=== PATIENT | male | born 1945 | race Caucasian/White ===

== ENCOUNTER 2017-09-03 16:42 | Observation (INO) | payer MEDICARE ==
--- NOTE | 2017-09-03 17:24 | ED PDOC ---
HPI: Chest Pain Time Seen by Provider: 09/03/17 17:10 Chief Complaint (Nursing): Chest Pain Chief Complaint (Provider): Chest pain History Per: Patient History/Exam Limitations: no limitations Onset/Duration Of Symptoms: Hrs (x1 [employer]) Current Symptoms Are (Timing): Still Present Quality: Pressure Associated Symptoms: Nausea Additional Complaint(s): Cy Witt is a 72 year old female, with a past medical history of CAD s/ p stent and HTN, who presents to the emergency department complaining of substernal chest pressure onset x1 hr [employer]. Patient states pain is non-radiating and associated with shortness of breath and nausea. Patient reports similar symptoms x2 years ago prior to stent placement. No further medical complaints. PMD: Rusty Goddard Past Medical History Reviewed: Historical Data, Nursing Documentation, Vital Signs Vital Signs: Last Vital Signs Temp 98.2 F 09/03/17 16:50 Pulse 54 L 09/03/17 16:50 Resp 16 09/03/17 16:50 BP 132/75 09/03/17 16:50 Pulse Ox 97 09/03/17 17:29 - Medical History PMH: CAD, HTN - Surgical History Surgical History: Coronary Stent - Family History Family History: States: Unknown Family Hx - Social History Alcohol: None Drugs: Denies - Allergies Allergies/Adverse Reactions: Allergies Allergy/AdvReac Type Severity Reaction Status Date / Time No Known Allergies Allergy Verified 09/03/17 16:50 Review of Systems ROS Statement: Except As Marked, All Systems Reviewed And Found Negative Cardiovascular: Positive for: Chest Pain (substernal chest pressure) Respiratory: Positive for: Shortness of Breath Gastrointestinal: Positive for: Nausea Physical Exam - Reviewed Nursing Documentation Reviewed: Yes Vital Signs Reviewed: Yes - Physical Exam Appears: Positive for: Non-toxic, No Acute Distress Head Exam: Positive for: ATRAUMATIC, NORMAL INSPECTION, NORMOCEPHALIC Skin: Positive for: Normal Color, Warm, Dry Eye Exam: Positive for: Normal appearance, EOMI, PERRL Neck: Positive for: Painless ROM, Supple Cardiovascular/Chest: Positive for: Regular Rate, Rhythm. Negative for: Murmur Respiratory: Positive for: Normal Breath Sounds. Negative for: Respiratory Distress Gastrointestinal/Abdominal: Positive for: Normal Exam, Soft. Negative for: Tenderness Back: Positive for: Normal Inspection Extremity: Positive for: Normal ROM (upper and lower extremities). Negative for : Deformity, Swelling Neurologic/Psych: Positive for: Alert, Oriented. Negative for: Motor/Sensory Deficits - Laboratory Results Result Diagrams: 09/03/17 17:25 09/03/17 17:25 - ECG O2 Sat by Pulse Oximetry: 97 (RA) Pulse Ox Interpretation: Normal Medical Decision Making Medical Decision Making: Time: 17:10 Initial Plan: --CMP --Troponin I --CBC w/ differential --Chest two views (PA/LAT) [RAD] --Aspirin 325mg PO --Reevaluation Scribe Attestation: Documented by Wagner Jiménez, acting as a scribe for Anupam Reyna MD Provider Scribe Attestation: All medical record entries made by the Scribe were at my direction and personally dictated by me. I have reviewed the chart and agree that the record accurately reflects my personal performance of the history, physical exam, medical decision making, and the department course for this patient. I have also personally directed, reviewed, and agree with the discharge instructions and disposition. Disposition - Clinical Impression Clinical Impression: Chest pain - Patient ED Disposition Is Patient to be Admitted: Yes - Disposition Disposition Time: 18:41 Condition: FAIR Forms: ClassBug (Uzbek) - Pt Status Changed To: Hospital Disposition Of: Observation - POA Present On Arrival: None
[2017-09-03 17:45] LABS: BASO # 0.1 K/uL (0.0-0.2); BASO % 0.9 % (0.0-2.0); EOS # 0.3 K/uL (0.0-0.7); EOS % 4.1 % (0.0-4.0); HEMOGLOBIN 15.8 g/dL (12.0-18.0); LYMPH # 2.1 K/uL (1.0-4.3); MEAN CELL VOLUME 89.6 fl (80.0-94.0); MEAN CORPUSCULAR HEMOGLOBIN 30.5 pg (27.0-31.0); MEAN CORPUSCULAR HGB CONC 34.1 g/dL (33.0-37.0); MEAN PLATELET VOLUME 9.3 fl (7.2-11.7); MONO # 0.6 K/uL (0.0-0.8); MONO % 9.1 % (0.0-10.0); NEUT # 3.5 K/uL (1.8-7.0); NEUT % 53.9 % (50.0-75.0); NRBC % 0.2 % (0.0-0.0); RBC 5.18 Mil/uL (4.40-5.90); RED CELL DISTRIBUTION WIDTH 14.5 % (11.5-14.5); WHITE BLOOD COUNT 6.4 K/uL (4.8-10.8)
[2017-09-03 17:49] LABS: ALB/GLOB RATIO 1.2 (1.0-2.1); ALBUMIN 4.2 g/dL (3.5-5.0); ALT/SGPT 30 U/L (21-72); AST/SGOT 29 U/L (17-59); BLOOD UREA NITROGEN 16 mg/dl (9-20); CALCIUM 9.3 mg/dL (8.4-10.2); GFR AFRICAN-AMERICAN > 60; GFR NON-AFRICAN AMERICAN > 60
--- NOTE | 2017-09-03 18:21 | RAD ---
HISTORY: COMPARISON: No prior. TECHNIQUE: Chest PA and lateral FINDINGS: LINES AND TUBES: None. LUNG AND PLEURA: The lungs are well inflated and clear. No pleural effusion or pneumothorax. HEART AND MEDIASTINUM: The heart is not enlarged. The hilar and mediastinal contours are within normal limits. SKELETAL STRUCTURES: The bony structures are within normal limits for the patient's age. VISUALIZED UPPER ABDOMEN: Normal. OTHER FINDINGS: There is chronic elevation of the right hemidiaphragm. IMPRESSION: No active pulmonary disease.
[2017-09-04 05:14] VITALS: TEMP 97.9
[2017-09-04 05:37] LABS: HEMOGLOBIN 15.7 g/dL (12.0-18.0); MEAN CELL VOLUME 89.7 fl (80.0-94.0); MEAN CORPUSCULAR HEMOGLOBIN 30.2 pg (27.0-31.0); MEAN CORPUSCULAR HGB CONC 33.6 g/dL (33.0-37.0); RBC 5.2 Mil/uL (4.40-5.90); RED CELL DISTRIBUTION WIDTH 14.4 % (11.5-14.5); WHITE BLOOD COUNT 7.1 K/uL (4.8-10.8)
[2017-09-04 05:55] LABS: T4 7.84 ug/dl (5.5-11.0)
[2017-09-04] MEDS ORDERED: Pneumococcal 23-Valent Vaccine IM ONE (06:00)
--- NOTE | 2017-09-04 08:23 | CP.PCM.HP ---
History of Present Illness - History of Present Illness History of Present Illness: 72 YR OLD MALE ADMITTED WITH CHEST DISCOMFORT X 1 DAY HX OF SIMILAR EPISODE 2YRS AGO REQUIRING A CARDIAC STENT FEELS BETTER THIS AM PMX-ASHD AND HTN FAMILY HX --UNREMARKABLE Present on Admission - Present on Admission Any Indicators Present on Admission: Yes Past Patient History - Past Medical History & Family History Past Medical History?: Yes - Past Social History Smoking Status: Never Smoked - CARDIAC Hx Cardiac Disorders: Yes Hx Hypertension: Yes - PULMONARY Hx Respiratory Disorders: No - NEUROLOGICAL Hx Neurological Disorder: No - HEENT Hx HEENT Problems: No - RENAL Hx Chronic Kidney Disease: No - ENDOCRINE/METABOLIC Hx Endocrine Disorders: No - HEMATOLOGICAL/ONCOLOGICAL Hx Blood Disorders: No - INTEGUMENTARY Hx Dermatological Problems: No - MUSCULOSKELETAL/RHEUMATOLOGICAL Hx Musculoskeletal Disorders: No Hx Falls: No - GASTROINTESTINAL Hx Gastrointestinal Disorders: No - GENITOURINARY/GYNECOLOGICAL Hx Genitourinary Disorders: No - PSYCHIATRIC Hx Psychophysiologic Disorder: No Hx Substance Use: No - SURGICAL HISTORY Hx Surgeries: Yes Hx Coronary Stent: Yes - ANESTHESIA Hx Anesthesia: Yes Hx Anesthesia Reactions: No Meds Allergies/Adverse Reactions: Allergies Allergy/AdvReac Type Severity Reaction Status Date / Time No Known Allergies Allergy Verified 09/03/17 16:50 Physical Exam - Constitutional Appears: Well - Head Exam Head Exam: ATRAUMATIC, NORMAL INSPECTION, NORMOCEPHALIC - Eye Exam Eye Exam: EOMI, Normal appearance, PERRL Pupil Exam: NORMAL ACCOMODATION, PERRL - ENT Exam ENT Exam: Mucous Membranes Moist, Normal Exam - Neck Exam Neck exam: Positive for: Normal Inspection - Respiratory Exam Respiratory Exam: Clear to Auscultation Bilateral, NORMAL BREATHING PATTERN - Cardiovascular Exam Cardiovascular Exam: REGULAR RHYTHM - GI/Abdominal Exam GI & Abdominal Exam: Normal Bowel Sounds, Soft. absent: Tenderness - Rectal Exam Rectal Exam: NORMAL INSPECTION - Extremities Exam Extremities exam: Positive for: normal inspection - Back Exam Back exam: NORMAL INSPECTION - Neurological Exam Neurological exam: Alert, CN II-XII Intact, Normal Gait, Oriented x3, Reflexes Normal - Psychiatric Exam Psychiatric exam: Normal Affect, Normal Mood - Skin Skin Exam: Dry, Intact, Normal Color, Warm Results - Vital Signs Recent Vital Signs: Last Vital Signs Temp 97.9 F 09/04/17 07:56 Pulse 56 L 09/04/17 08:06 Resp 18 09/04/17 07:56 BP 155/90 H 09/04/17 08:06 Pulse Ox 97 09/04/17 07:56 - Labs Result Diagrams: 09/04/17 05:00 09/03/17 17:25 Labs: Laboratory Results - last 24 hr 09/03/17 09/03/17 09/04/17 17:25 17:25 01:25 WBC 6.4 RBC 5.18 Hgb 15.8 Hct 46.4 MCV 89.6 MCH 30.5 MCHC 34.1 RDW 14.5 Plt Count 208 MPV 9.3 Neut % (Auto) 53.9 Lymph % (Auto) 32.0 [place] % (Auto) 9.1 Eos % (Auto) 4.1 H Baso % (Auto) 0.9 Neut # (Auto) 3.5 Lymph # (Auto) 2.1 [place] # (Auto) 0.6 Eos # (Auto) 0.3 Baso # (Auto) 0.1 Sodium 140 Potassium 4.2 Chloride 103 Carbon Dioxide 25 Anion Gap 16 BUN 16 Creatinine 0.7 L Est GFR ( Amer) > 60 Est GFR (Non-Af Amer) > 60 Random Glucose 121 H Calcium 9.3 Total Bilirubin 0.7 AST 29 ALT 30 Alkaline Phosphatase 98 Troponin I < 0.0120 < 0.0120 Total Protein 7.5 Albumin 4.2 Globulin 3.3 Albumin/Globulin Ratio 1.2 Thyroxine (T4) TSH 3rd Generation 09/04/17 09/04/17 05:00 05:00 WBC 7.1 RBC 5.20 Hgb 15.7 Hct 46.7 MCV 89.7 MCH 30.2 MCHC 33.6 RDW 14.4 Plt Count 205 MPV Neut % (Auto) Lymph % (Auto) [place] % (Auto) Eos % (Auto) Baso % (Auto) Neut # (Auto) Lymph # (Auto) [place] # (Auto) Eos # (Auto) Baso # (Auto) Sodium Potassium Chloride Carbon Dioxide Anion Gap BUN Creatinine Est GFR ( Amer) Est GFR (Non-Af Amer) Random Glucose Calcium Total Bilirubin AST ALT Alkaline Phosphatase Troponin I Total Protein Albumin Globulin Albumin/Globulin Ratio Thyroxine (T4) 7.84 TSH 3rd Generation 1.30 Assessment & Plan - Assessment and Plan (Free Text) Assessment: CHEST PAIN HX OF HTN HX OF ASHD Plan: CARDIOLOGY EVAL CONTINUE RX ORDERED
[2017-09-04 10:13] LABS: HDL CHOLESTEROL 33 MG/DL (30-70)
[2017-09-04 10:24] LABS: LDL CHOLESTEROL 42 mg/dL (0-129)
[2017-09-04 16:00] VITALS: BP 135/85; PULSE 61; RESP 17; O2SAT 95
--- NOTE | 2017-09-05 02:08 | CON ---
DATE: 09/04/2017 CARDIOLOGY CONSULTATION REASON FOR CONSULTATION: Chest pain. HISTORY OF PRESENT ILLNESS: The patient is a 72-year-old male who has a history of coronary artery disease, status post coronary stenting at [facility], [place] in 2016. The patient has but it only shows in the place of the stent. The patient is following with the primary physician as an outpatient. He presented because of retrosternal chest pain that is not radiating and started one hour prior to this admission. The patient denies any associated diaphoresis or shortness of breath. SOCIAL HISTORY: The patient is a nonsmoker and nondrinker. MEDICATIONS: The patient's current medications are aspirin 81 mg once a day, subcutaneous heparin 5000 units twice a day, Lipitor 40 mg once a day, Lopressor 25 mg twice a day, and Plavix 75 mg once a day. REVIEW OF SYSTEMS: No nausea or vomiting. No fever or chills. The patient denies any chest pain at this time. No reported ventricular arrhythmia and no reported hypotension. PAST MEDICAL HISTORY: Hypertension, coronary artery disease, status post coronary stenting. The patient denies any history of stroke in the past. PHYSICAL EXAMINATION: GENERAL: The patient is an elderly male who does not appear to be in acute distress. VITAL SIGNS: Blood pressure 133/79, heart rate 59, temperature 97.9, and respirations 18. HEENT: Normocephalic. NECK: No JVD. CHEST: Clear. HEART: S1 and S2 are regular. ABDOMEN: Soft. EXTREMITIES: No edema. LABORATORY DATA: SMA-7: Sodium 140, potassium 4.2, chloride 103, CO2 of 25, glucose 121, BUN 16 and creatinine 0.7. Three sets of troponin are negative. Lipid profile is within normal limits. Thyroid profile is within normal limit. EKG revealed sinus bradycardia at the rate of 52 with first-degree AV block. Chest x-ray report: No active pulmonary disease. ASSESSMENT: 1. Chest pain, myocardial infarctions is ruled out. 2. History of coronary artery stenting two years ago. 3. Hypertension. 4. Mild sinus bradycardia. RECOMMENDATIONS: Continue aspirin 81 mg once a day, Lipitor 40 mg once a day, subcutaneous heparin 5000 units every 12 hours, Plavix 75 mg once a day. Hold Lopressor for heart rate below 60. Followup echo report. If the echo study is unremarkable, the patient can be discharged to follow with his primary physician and undergo an outpatient stress test. Neo Hassan MD
--- NOTE | 2017-09-05 18:05 | CARD ---
APPROVED REPORT Date of service: 09/04/2017 EXAM: Two-dimensional and M-mode echocardiogram with Doppler and color Doppler. Other Information Quality : GoodRhythm : NSR INDICATION Chest Pain 2D DIMENSIONS IVSd0.97 (0.7-1.1cm)LVDd4.84 (3.9-5.9cm) LVOT Diameter2.38 (1.8-2.4cm)PWd0.99 (0.7-1.1cm) IVSs1.44 (0.8-1.2cm)LVDs3.38 (2.5-4.0cm) FS (%) 30.1 %PWs1.53 (0.8-1.2cm) M-Mode DIMENSIONS Left Atrium (MM)4.00 (2.5-4.0cm)IVSd1.39 (0.7-1.1cm) Aortic Root3.51 (2.2-3.7cm)LVDd5.03 (4.0-5.6cm) Aortic Cusp Exc.2.28 (1.5-2.0cm)PWd1.16 (0.7-1.1cm) IVSs1.65 cmFS (%) 38 % LVDs3.11 (2.0-3.8cm)PWs1.49 cm Aortic Valve AoV Peak Rdungkbi729.5cm/sAoV VTI21.5cmAO Peak GR.4mmHg LVOT Peak Kaqgngrs63.2cm/sLVOT VTI19.68cmAO Mean GR.3mmHg GLENROY (VMAX)1.16uo1AFL (VTI)1.82cm2 Mitral Valve MV E Bojoamhe62.0cm/sMV DECEL XOFG101urWP A Lictnagn15.9cm/s MV PQC096toU/A ratio0.8MVA (PHT)1.91cm2 TDI Lateral E' Peak V7.66cm/sMedial E' Peak V6.03cm/sE/Lateral E'6.7 E/Medial E'8.5 Pulmonary Valve PV Peak Lexiyitr63.6cm/s LEFT VENTRICLE The left ventricle is normal size. There is borderline to mild concentric left ventricular hypertrophy. The left ventricular function is normal. The left ventricular ejection fraction is within the normal range. The Ejection Fraction is 60-65%. There is normal LV segmental wall motion. Transmitral Doppler flow pattern is Grade I-abnormal relaxation pattern. RIGHT VENTRICLE The right ventricle is normal size. There is normal right ventricular wall thickness. The right ventricular systolic function is normal. ATRIA The left atrium is borderline dilated. The right atrium size is normal. The interatrial septum is intact with no evidence for an atrial septal defect. AORTIC VALVE The aortic valve is normal in structure. No aortic regurgitation is present. There is no aortic valvular stenosis. MITRAL VALVE The mitral valve is thickened but opens well. There is no evidence of mitral valve prolapse. There is no mitral valve stenosis. Mitral regurgitation is mild. TRICUSPID VALVE The tricuspid valve is normal in structure. There is mild tricuspid regurgitation. PULMONIC VALVE The pulmonary valve is normal in structure. There is no pulmonic valvular regurgitation. GREAT VESSELS The aortic root is normal in size. The IVC is normal in size and collapses >50% with inspiration. PERICARDIAL EFFUSION The pericardium appears normal. <Conclusion> The left ventricular function is normal. The left ventricular ejection fraction is within the normal range. The Ejection Fraction is 60-65%. There is mild tricuspid regurgitation. Mitral regurgitation is mild. There is mild tricuspid regurgitation.
--- NOTE | 2017-09-06 10:59 | CP.PCM.DIS ---
Provider - Provider Date of Admission: 09/03/17 18:40 Attending physician: Marc Mark MD Time Spent in preparation of Discharge (in minutes): 30 Diagnosis - Discharge Diagnosis (1) Hypertension Status: Acute (2) History of coronary artery disease Status: Acute (3) Chest pain Status: Acute Hospital Course - Lab Results Lab Results: Most Recent Lab Values WBC 7.1 K/uL (4.8-10.8) 09/04/17 05:00 RBC 5.20 Mil/uL (4.40-5.90) 09/04/17 05:00 Hgb 15.7 g/dL (12.0-18.0) 09/04/17 05:00 Hct 46.7 % (35.0-51.0) 09/04/17 05:00 MCV 89.7 fl (80.0-94.0) 09/04/17 05:00 MCH 30.2 pg (27.0-31.0) 09/04/17 05:00 MCHC 33.6 g/dL (33.0-37.0) 09/04/17 05:00 RDW 14.4 % (11.5-14.5) 09/04/17 05:00 Plt Count 205 K/uL (130-400) 09/04/17 05:00 MPV 9.3 fl (7.2-11.7) 09/03/17 17:25 Neut % (Auto) 53.9 % (50.0-75.0) 09/03/17 17:25 Lymph % (Auto) 32.0 % (20.0-40.0) 09/03/17 17:25 [place] % (Auto) 9.1 % (0.0-10.0) 09/03/17 17:25 Eos % (Auto) 4.1 % (0.0-4.0) H 09/03/17 17:25 Baso % (Auto) 0.9 % (0.0-2.0) 09/03/17 17:25 Neut # (Auto) 3.5 K/uL (1.8-7.0) 09/03/17 17:25 Lymph # (Auto) 2.1 K/uL (1.0-4.3) 09/03/17 17:25 [place] # (Auto) 0.6 K/uL (0.0-0.8) 09/03/17 17:25 Eos # (Auto) 0.3 K/uL (0.0-0.7) 09/03/17 17:25 Baso # (Auto) 0.1 K/uL (0.0-0.2) 09/03/17 17:25 Sodium 140 mmol/l (132-148) 09/03/17 17:25 Potassium 4.2 MMOL/L (3.6-5.0) 09/03/17 17:25 Chloride 103 mmol/L (98-107) 09/03/17 17:25 Carbon Dioxide 25 mmol/L (22-30) 09/03/17 17:25 Anion Gap 16 (10-20) 09/03/17 17:25 BUN 16 mg/dl (9-20) 09/03/17 17:25 Creatinine 0.7 mg/dl (0.8-1.5) L 09/03/17 17:25 Est GFR ( Amer) > 60 09/03/17 17:25 Est GFR (Non-Af Amer) > 60 09/03/17 17:25 Random Glucose 121 mg/dL (75-110) H 09/03/17 17:25 Calcium 9.3 mg/dL (8.4-10.2) 09/03/17 17:25 Total Bilirubin 0.7 mg/dl (0.2-1.3) 09/03/17 17:25 AST 29 U/L (17-59) 09/03/17 17:25 ALT 30 U/L (21-72) 09/03/17 17:25 Alkaline Phosphatase 98 U/L (38-126) 09/03/17 17:25 Troponin I < 0.0120 ng/mL (0.00-0.120) 09/04/17 09:55 Total Protein 7.5 G/DL (6.3-8.2) 09/03/17 17:25 Albumin 4.2 g/dL (3.5-5.0) 09/03/17 17:25 Globulin 3.3 gm/dL (2.2-3.9) 09/03/17 17:25 Albumin/Globulin Ratio 1.2 (1.0-2.1) 09/03/17 17:25 Triglycerides 132 mg/DL (0-149) 09/04/17 09:55 Cholesterol 97 mg/dL (0-199) 09/04/17 09:55 LDL Cholesterol Direct 42 mg/dL (0-129) 09/04/17 09:55 HDL Cholesterol 33 MG/DL (30-70) 09/04/17 09:55 Thyroxine (T4) 7.84 ug/dl (5.5-11.0) 09/04/17 05:00 TSH 3rd Generation 1.30 mIU/ML (0.46-4.68) 09/04/17 05:00 Discharge Exam - Head Exam Head Exam: ATRAUMATIC, NORMAL INSPECTION, NORMOCEPHALIC - Eye Exam Eye Exam: EOMI, Normal appearance, PERRL Pupil Exam: NORMAL ACCOMODATION, PERRL - GI/Abdominal Exam GI & Abdominal Exam: Normal Bowel Sounds - Rectal Exam Rectal Exam: NORMAL INSPECTION - Neurological Exam Neurological exam: Alert, CN II-XII Intact, Normal Gait, Oriented x3, Reflexes Normal - Psychiatric Exam Psychiatric exam: Normal Affect, Normal Mood - Skin Skin Exam: Dry, Intact, Normal Color, Warm Discharge Plan - Follow Up Plan Condition: FAIR Disposition: AGAINST MEDICAL ADVICE Additional Instructions: PATIENT SIGNED OUT AGAINST MEDICAL ADVISE
== END 2017-09-04 16:28 | disposition left against medical advice (07) ==
LOC: H.ER 16:42 → H.ERHOLD 18:40 → H.TEL 21:37
PROVIDERS: ADMIT Internal Medicine Pulmonary Disease; ATTEND Internal Medicine Pulmonary Disease
DX: R07.9 Chest pain, unspecified (principal); R00.1 Bradycardia, unspecified; I25.10 Atherosclerotic heart disease of native coronary artery without angina pectoris; I10 Essential (primary) hypertension; Z23 Encounter for immunization; Z95.5 Presence of coronary angioplasty implant and graft
CPT/HCPCS: 36415; 71046; 80053; 80061; 84436; 84443; 84484; 85025; 85027; 90732; 93005; 93306; 99285; G0009; G0378; J1644